=== PATIENT | female | born 1960 | race American Indian/Alaskan Native ===

== ENCOUNTER 2019-09-05 20:20 | Emergency (ER) | payer BC ==
[2019-09-05 23:18] VITALS: BP 127/77
[2019-09-06] MEDS ORDERED: oxyCODONE /ACETAMINOPHEN 5-325MG TAB PO ONE (00:37)
[2019-09-06] MEDS ORDERED: IBUPROFEN 800 MG TAB PO ONE (00:37)
--- NOTE | 2019-09-06 01:27 | XRay Report ---
Right knee, 3 views INDICATION: Pain following fall yesterday FINDINGS: The joint space is maintained. There is no fracture or dislocation. No spurring or arthriti c change. No bone lesion or periostitis. There may be a moderate-sized joint effusion however. IMPRESSION: Joint effusion without definite fracture. Signer Name: Bartolo Rosas MD Signed: 09/06/2019 1:22 AM Workstation Name: [id number]
--- NOTE | 2019-09-06 02:16 | Emergency Department Report ---
ED Lower Extremity HPI - General Chief Complaint: Extremity Injury, Lower Stated Complaint: FELL/RT KNEE PAIN Time Seen by Provider: 09/06/19 00:35 Source: family Mode of arrival: Wheelchair Limitations: No Limitations - History of Present Illness Initial Comments: 59 year old -[place] female presents to the emergency room complaining of right knee and right leg pain with swelling. Patient reports that she had fallen down 6 stairs approximately 25 hours ago. Patient reports that she has been applying cold compresses and elevation. Patient states that she is not able to bear weight Complaint: knee injury Onset/Timin -: days(s) Injury: Knee: Right Type of Injury: blunt Place: home Severity scale (0 -10): 9 - Related Data Previous Rx's Medication Instructions Recorded Last Taken Type Ibuprofen [Motrin 800 MG tab] 800 mg PO Q8HR PRN #30 tablet 09/06/19 Unknown Rx oxyCODONE /ACETAMINOPHEN [Percocet 1 tab PO Q6HR PRN #12 tablet 09/06/19 Unknown Rx 5/325] Allergies Allergy/AdvReac Type Severity Reaction Status Date / Time No Known Allergies Allergy Unverified 09/06/19 00:36 ED Review of Systems ROS: Stated complaint: FELL/RT KNEE PAIN Other details as noted in HPI ED Past Medical Hx - Medications Home Medications: Home Medications Medication Instructions Recorded Confirmed Last Taken Type Ibuprofen [Motrin 800 MG tab] 800 mg PO Q8HR PRN #30 tablet 09/06/19 Unknown Rx oxyCODONE /ACETAMINOPHEN [Percocet 1 tab PO Q6HR PRN #12 tablet 09/06/19 Unknown Rx 5/325] ED Physical Exam - General Limitations: No Limitations ED Course Vital Signs 09/05/19 22:00 Temperature 98.5 F Pulse Rate 90 Respiratory 18 Rate Blood Pressure 127/77 O2 Sat by Pulse 96 Oximetry Critical care attestation.: If time is entered above; I have spent that time in minutes in the direct care of this critically ill patient, excluding procedure time. ED Disposition Clinical Impression: Knee effusion, right Fall Qualifiers: Encounter type: initial encounter Qualified Code(s): W19.XXXA - Unspecified fall, initial encounter Disposition: DC-01 TO HOME OR SELFCARE Is pt being admited?: No Does the pt Need Aspirin: No Condition: Stable Instructions: Knee Effusion (ED) Additional Instructions: Please follow up with orthopedic provider is you have a effusion of the right knee. Please wear the immobilizer and use crutches to help ambulate. Follow-up with orthopedics or provider. Prescriptions: Ibuprofen [Motrin 800 MG tab] 800 mg PO Q8HR PRN #30 tablet PRN Reason: Pain , Severe (7-10) oxyCODONE /ACETAMINOPHEN [Percocet 5/325] 1 tab PO Q6HR PRN #12 tablet PRN Reason: Pain Referrals: PRIMARY CARE, [Primary Care Provider] - 3-5 Days
[2019-09-06] MEDS ORDERED: oxyCODONE /ACETAMINOPHEN 5-325MG TAB PO PRN (02:18)
== END 2019-09-06 03:14 | disposition home or self-care (01) ==
LOC: ED 20:20
DX: M25.461 Effusion, right knee (principal); Z79.899 Other long term (current) drug therapy; W10.8XXA Fall (on) (from) other stairs and steps, initial encounter; Y93.89 Activity, other specified; Y92.89 Other specified places as the place of occurrence of the external cause; Y99.8 Other external cause status